=== PATIENT | female | born 1965 | race Caucasian/White ===

== ENCOUNTER 2018-02-03 11:07 | Outpatient (CLI) | END 2018-02-03 11:08 | disposition home or self-care (01) | LOC: FCC-LAB 11:07 | PROVIDERS: ATTEND Family Medicine | DX: I10 Essential (primary) hypertension (principal); F41.9 Anxiety disorder, unspecified; Z68.34 Body mass index [BMI] 34.0-34.9, adult; Z87.898 Personal history of other specified conditions | CPT/HCPCS: 36415; 80053; 80061; 80306; 84443; 85025 ==